=== PATIENT | male | born 1945 | race Caucasian/White ===

== ENCOUNTER 2018-11-02 06:07 | Emergency (ER) | payer OTHER, MEDICARE ==
[~2018-11-02] VITALS: Ht 170.2 cm; Wt 68.2 kg
[2018-11-02 06:09] VITALS: TEMP 97.6
[2018-11-02] MEDS ORDERED: PRINIVIL2.5 MG (06:18)
[2018-11-02 06:32] LABS: BASO # 0.1 (0.0-0.2); BASO % 0.7 % (0.0-2.0); EOS # 0.2 (0.0-0.7); EOS % 2.2 % (0-4.0); GRAN # 4.7 (1.4-6.5); GRAN % 53.8 % (42.2-75.2); HEMOGLOBIN 11.8 g/dl (13.5-18.0); LYMPH # 2.9 (1.2-3.4); LYMPH % 33.3 % (20.0-51.0); MEAN CELL VOLUME 97 fl (80.0-100.0); MEAN CORPUSCULAR HEMOGLOBIN 32 pg (27.0-31.0); MEAN CORPUSCULAR HGB CONC 33 g/dl (33.0-37.0); MEAN PLATELET VOLUME 12.5 fl (7.4-10.4); MONO # 0.8 (0.1-0.6); MONO % 9.1 % (1.7-9.3); PLATELET COUNT 194 K/mm3 (130-400); RED BLOOD COUNT 3.73 M/mm3 (4.20-5.60)
[2018-11-02 06:36] LABS: HEMATOCRIT 36.1 % (42.0-52.0)
[2018-11-02 06:38] LABS: ALANINE AMINOTRANSFERASE 11 U/L (21-72); ALBUMIN 4.2 gm/dL (3.5-5.0); ALKALINE PHOSPHATASE 112 U/L (50-136); ANION GAP 14 mmol/L (7-16); AST,SGOT 28 U/L (15-37); BILIRUBIN,TOTAL 0.5 mg/dL (0.0-1.0); BLOOD UREA NITROGEN 36 mg/dL (9-20); CALCIUM 9.6 mg/dL (8.4-10.2); CARBON DIOXIDE 18 mmol/L (22-30); CHLORIDE 107 mmol/L (98-107); GLUCOSE 116 mg/dL (74-106); POTASSIUM 4.3 mmol/L (3.4-5.0); SODIUM 139 mmol/L (137-145); TOTAL PROTEIN 7.6 gm/dL (6.4-8.2)
[2018-11-02 06:41] LABS: INR 1.2 (0.8-3.0); PROTHROMBIN TIME 14.3 SECONDS (9.7-12.8)
[2018-11-02 06:49] LABS: TROPONIN-I < 0.012 ng/mL (0.000-0.035)
[2018-11-02 07:24] LABS: COLLECTION METHOD CLEAN CATCH
[2018-11-02 07:35] LABS: PH 5 (5-8); SQUAMOUS EPITHELIAL None Seen /hpf; URINE APPEARANCE Clear; URINE BACTERIA None Seen /hpf; URINE BILIRUBIN Negative (NEGATIVE); URINE BLOOD 2+ (NEGATIVE); URINE COLOR Straw; URINE GLUCOSE Negative (NEGATIVE); URINE KETONE Negative (NEGATIVE); URINE LEUKOCYTE ESTERASE Negative (NEGATIVE); URINE NITRATE Negative (NEGATIVE); URINE PROTEIN(semi-quant) 2+ (NEGATIVE); URINE UROBILINOGEN Negative (NEGATIVE)
[2018-11-02 09:51] VITALS: BP 173/88; PULSE 55
== END 2018-11-02 09:45 | disposition short-term general hospital (02) ==
LOC: COL.ER 06:07
PROVIDERS: Emergency Medicine
DX: S22.41XA Multiple fractures of ribs, right side, initial encounter for closed fracture (principal); J90 Pleural effusion, not elsewhere classified; K74.60 Unspecified cirrhosis of liver; R18.8 Other ascites; I10 Essential (primary) hypertension; R40.2412 Glasgow coma scale score 13-15, at arrival to emergency department; Z23 Encounter for immunization; V43.52XA Car driver injured in collision with other type car in traffic accident, initial encounter
CPT/HCPCS: J2405; J3010; J7030; Q9967

== ENCOUNTER 2020-11-13 13:18 | Day surgery (SDC) | payer MEDICARE ==
[~2020-11-13] VITALS: Ht 170.2 cm; Wt 67.9 kg
[~2020-11-13 13:18] MED LIST: PRINIVIL2.5 MG
[2020-11-13] MEDS ORDERED: NORVASC2.5 MG PO (14:37)
[2020-11-13] MEDS ORDERED: COZAAR 25MG25 MG/TAB PO (14:37)
[2020-11-13] MEDS ORDERED: HCTZ12.5TAB (14:42)
[2020-11-13 14:50] VITALS: BP 167/71; PULSE 78; TEMP 98.7
[2020-11-13] MEDS ORDERED: COLACE 100100 MG/CAP PO (16:18)
[2020-11-13] MEDS ORDERED: NORCO 325 MG-51 TAB PO (16:18)
[2020-11-13 16:45] VITALS: BP 161/63; PULSE 72; TEMP 98.1
--- NOTE | 2020-11-13 16:45 | NUR ---
Pt returns to [facility] from PACU, awake and alert, denies pain to left groin incision. VSS. Call light in reach. Pt does not have anyone here and is from out of town and is going to stay at the [facility] and will need to get a taxi for a ride home. Him and Dr. Juarez discussed pain medications and agreed that pt will do okay with just Tylenol and Motrin.
[2020-11-13 16:58] VITALS: TEMP 98.5
--- NOTE | 2020-11-13 16:58 | NUR ---
Pt given a muffin and a coke, denies pain or nausea. VSS. Call light in reach.
[2020-11-13 17:00] VITALS: BP 148/64; PULSE 65
[2020-11-13 17:15] VITALS: BP 154/61; PULSE 73
--- NOTE | 2020-11-13 17:15 | NUR ---
Pt awake and alert, denies pain, up to the bathroom and voids without difficulty. VSS.
[2020-11-13 17:30] VITALS: BP 150/75; PULSE 73
--- NOTE | 2020-11-13 17:40 | NUR ---
Discharge instruction provided and understanding verbalized. IV discontinued to right forearm. Pt taken out via wheelchair and taking a taxi to a hotel to stay for the night.
== END 2020-11-13 17:40 | disposition home or self-care (01) ==
LOC: SDCO 13:18
DX: K40.30 Unilateral inguinal hernia, with obstruction, without gangrene, not specified as recurrent (principal); I10 Essential (primary) hypertension; J44.9 Chronic obstructive pulmonary disease, unspecified; D72.829 Elevated white blood cell count, unspecified; F17.210 Nicotine dependence, cigarettes, uncomplicated; Z79.899 Other long term (current) drug therapy
CPT/HCPCS: C1781; J0330; J0690; J1100; J2405; J2704; J3010

== ENCOUNTER 2024-02-29 09:50 | Emergency (ER) | payer MEDICARE ==
[~2024-02-29] VITALS: Ht 170.2 cm; Wt 63.6 kg
[~2024-02-29 09:50] MED LIST changes: +ANORO IH; +ARNUITY200 IH; +CEPHALEXIN500 M1 PO; +COLACE 100100 MG/CAP PO; +COZAAR100 MG PO; +HCTZ12.5TAB; +MIRTAZAPINE7.5 MG PO; +NEURONTIN300 MG/CAP PO; +NEXIUM 24HR20 M1 PO; +NORCO 325 MG-51 TAB PO; +NORVASC2.5 MG PO; +PREDNISONE20 MG PO
[2024-02-29 09:52] VITALS: TEMP 97.1
[2024-02-29 10:23] LABS: INR 1.6 (0.8-3.0); PROTHROMBIN TIME 17.2 SECONDS (9.7-12.8)
[2024-02-29 10:24] LABS: MEAN CELL VOLUME 96 fl (80.0-100.0); MEAN CORPUSCULAR HGB CONC 31 g/dl (33.0-37.0); MEAN PLATELET VOLUME 13.4 fl (7.4-10.4); PLATELET COUNT 164 K/mm3 (130-400)
[2024-02-29 10:25] LABS: HEMATOCRIT 24.1 % (42.0-52.0); HEMOGLOBIN 7.4 g/dl (13.5-18.0); MEAN CORPUSCULAR HEMOGLOBIN 30 pg (27-31)
[2024-02-29 10:40] LABS: BILIRUBIN,TOTAL 0.3 mg/dL (0.2-1.2); CALCIUM 7.4 mg/dL (8.4-10.2); CREATININE, serum 3.18 mg/dL (0.72-1.25); POTASSIUM 3.5 mEq/L (3.5-4.5); TOTAL PROTEIN 5.2 g/dl (6.2-8.1)
[2024-02-29] MEDS ORDERED: Morphine 4 MG/ML VIAL IV ONE (10:45)
[2024-02-29 11:23] LABS: ANISOCYTOSIS 1+; BAND 2 % (0-10); HYPOCHROMIA 1+; LYMPHOCYTE 3 % (20.0-51.0); NEUTROPHILS 89 % (42.0-75.2); PLATELET ESTIMATE NORMAL (NORMAL)
[2024-02-29] MEDS ORDERED: CEFTIN500 MG PO (12:34)
[2024-02-29] MEDS ORDERED: DOXYCYCLINE 10100 MG PO (12:34)
[2024-02-29] MEDS ORDERED: NORCO 325 MG-51 TAB PO (13:05)
[2024-02-29 13:15] VITALS: BP 137/74; PULSE 75
== END 2024-02-29 13:50 | disposition home or self-care (01) ==
LOC: COL.ER 09:50
PROVIDERS: Physician Assistant
DX: M79.632 Pain in left forearm (principal); J18.9 Pneumonia, unspecified organism; J90 Pleural effusion, not elsewhere classified
CPT/HCPCS: J2270; J2543